=== PATIENT | female | born 1975 | race American Indian/Alaskan Native ===

== ENCOUNTER 2023-03-19 18:08 | Emergency (ER) | payer MEDICAID, SELFPAY ==
[2023-03-19 18:12] VITALS: BP 141/85; PULSE 69; RESP 16; TEMP 36.6; O2SAT 98; BMI 26.9
[2023-03-19 18:48] LABS: Alanine Aminotransferase 22 IU/L (<35); Albumin 4.1 g/dL (3.5-5.0); Albumin Globulin Ratio 1.1 (1.0-2.8); Alkaline Phosphatase 68 U/L (38-126); Aspartate Aminotransferase 29 IU/L (14-36); BUN Creatinine Ratio 18.8 (6-22); Bilirubin Total 0.5 mg/dL (0.2-1.3); Blood Urea Nitrogen 12 mg/dL (7-17); Calcium 8.9 mg/dL (8.4-10.2); Carbon Dioxide 27 mmol/L (22-32); Chloride 105 mmol/L (98-107); Estimated Glomerular Filt Rate > 60 mL/min (>60); Globulin 3.6 g/dL (1.7-4.1); Glucose 118 mg/dL (70-100); Lipase 96 U/L (23-300); Sodium 139 mmol/L (137-145); Total Protein 7.7 g/dL (6.3-8.2)
[2023-03-19 18:50] LABS: HEMOLYSIS 68 (0-50); Potassium 4.2 mmol/L (3.4-5.1)
[2023-03-19 18:57] LABS: Add Manual Diff / Slide Review NO; Basophils Absolute Auto 0 /uL (0-100); Basophils Percent Auto 0.4 % (0-2); Eosinophils Absolute Auto 100 /uL (0-450); Eosinophils Percent Auto 1.1 % (2-4); Hematocrit 40.6 % (36-46); Lymphocytes Absolute Auto 1900 /uL (1100-4500); Lymphocytes Percent Auto 25.4 % (25-40); Mean Corpuscular HGB Conc 34.4 % (30-36); Mean Corpuscular Volume 90.1 fL (80-100); Monocytes Absolute Auto 400 /uL (0-900); Monocytes Percent Auto 4.7 % (3-14); Neutrophils Absolute Auto 5200 /uL (1500-7000); Neutrophils Percent Auto 68.4 % (50-75); Platelet Count 341 X10^3/uL (150-400); Red Cell Distribution Width 12.9 % (11.6-14.8); White Blood Cell Count 7.6 X10^3/uL (4.5-11.0)
--- NOTE | 2023-03-19 20:03 | DI.US.S_ITS ---
PROCEDURE: US ABDOMEN LIMITED INDICATIONS: POST PRANDIAL RUQ PAIN X 2 WEEKS TECHNIQUE: Real-time focused scanning was performed of the abdomen, with image documentation. COMPARISON: None. FINDINGS: Visualized pancreas unremarkable sonographically. No biliary ductal dilation extrahepatic bile duct measures 6 mm. No gallstones , gallbladder wall thickening or sonographic Vick sign. Liver length of 14.4 cm. The liver is echogenic. IMPRESSION: 1. No cholelithiasis or evidence of acute cholecystitis. 2. The liver is echogenic, a nonspecific finding commonly seen in the setting of steatosis. Dictated by: Tad Longoria M.D. on 03/19/2023 at 21:04 Approved by: Tad Longoria M.D. on 03/19/2023 at 21:06
[2023-03-19 22:26] VITALS: PULSE 71; O2SAT 97
[2023-03-19 22:30] VITALS: BP 137/85; PULSE 73; O2SAT 97
[2023-03-19] MEDS: ONDANSETRON 4 MG/2 ML INJ IV (22:35)
[2023-03-19 23:00] VITALS: BP 127/75; PULSE 68; O2SAT 97
[2023-03-19 23:30] VITALS: BP 121/73; PULSE 67; O2SAT 96
[2023-03-20] VITALS: BP 130/79; PULSE 68; O2SAT 95
--- NOTE | 2023-03-20 00:08 | ED_ITS ---
HPI - General Adult General Chief complaint: Abdominal Pain Stated complaint: stomach pain/N Time Seen by Provider: 03/19/23 23:10 Source: patient Mode of arrival: Ambulatory History of Present Illness HPI narrative: Otherwise healthy 47-year-old woman presents complaining of abdominal pain that usually periumbilical but occasionally localizing up to the right lower quadrant associated with nausea after eating. Symptoms have been noted over the past 2 weeks. Not associated with vomiting or fevers. She notes that she typically has bowel movements only every other day. Denies significant alcohol use does not describe burning reflux type pain. Related Data Home Medications Medication Instructions Recorded Confirmed No Known Home Medications 03/19/23 03/19/23 Allergies Allergy/AdvReac Type Severity Reaction Status Date / Time No Known Drug Allergies Allergy Verified 03/19/23 18:16 Review of Systems Review of Systems Narrative: Pertinent positive and negative findings as per HPI Patient History Social History Smoking Status: Never smoker Smoking Status: Never smoker alcohol intake frequency: a few times a month Substance Use Type: marijuana Exam Initial Vital Signs Initial Vital Signs: Vital Signs Temperature 97.8 F 03/19/23 18:12 Pulse Rate 69 03/19/23 18:12 Respiratory Rate 16 03/19/23 18:12 Blood Pressure 141/85 H 03/19/23 18:12 Pulse Oximetry 98 03/19/23 18:12 Oxygen Delivery Method Room Air 03/19/23 18:12 General: Healthy appearing, in no acute distress. Able to give a complete and coherent history. Well-nourished well-developed HEENT: Moist mucous membranes, normal sclera with reactive pupils, Respiratory: Lungs are clear to auscultation, no wheezing no rales no rhonchi. Full and symmetrical air movement Cardiac: Regular rate and rhythm no murmurs no bruits Abdomen: Soft, mild diffuse tenderness without rebound or guarding, no flank pain Skin: Warm and dry, no rashes Neurologic: Grossly neurologically intact with no obvious asymmetries or abnormalities Extremities: No trauma, well perfused Psych: Cooperative, appropriate insight and affect Course Orders Ordered: ED Orders 03/19/23 18:00 Complete Blood Count AUTO DIFF Stat Comprehensive Metabolic Panel Stat Lipase Stat 03/19/23 18:31 Urine Microscopic Stat 03/19/23 18:42 Urine Culture Stat 03/19/23 20:03 US abdomen limited Stat Ondansetron HCl (Ondansetron 4 Mg Odt) 4 mg PO NOW PRN PRN Reason: Nausea And Vomiting Ondansetron HCl (Ondansetron 4 Mg/2 Ml Inj) 4 mg IV NOW PRN PRN Reason: Nausea And Vomiting Last Admin: 03/19/23 22:35 Dose: 4 mg Documented By: SB Vital Signs Vital signs: Vital Signs - 8 hr 03/19/23 18:12 03/19/23 22:26 03/19/23 22:30 Temperature 97.8 F Pulse Rate 69 71 Respiratory Rate 16 Blood Pressure 141/85 H 137/85 Pulse Oximetry 98 97 Oxygen Delivery Method Room Air 03/19/23 22:30 Temperature Pulse Rate 73 Respiratory Rate Blood Pressure Pulse Oximetry 97 Oxygen Delivery Method Room Air Medical Decision Making Lab Data 03/19/23 18:00 03/19/23 18:00 Labs: Lab Results 03/19/23 Range/Units 18:00 WBC 7.6 (4.5-11.0) X10^3/uL RBC 4.50 (4.0-5.2) X10^6/uL Hgb 14.0 (12.0-16.0) g/dL Hct 40.6 (36-46) % MCV 90.1 (80-100) fL MCH 31.0 (26-34) PG MCHC 34.4 (30-36) % RDW 12.9 (11.6-14.8) % Plt Count 341 (150-400) X10^3/uL Neut % (Auto) 68.4 (50-75) % Lymph % (Auto) 25.4 (25-40) % [place] % (Auto) 4.7 (3-14) % Eos % (Auto) 1.1 L (2-4) % Baso % (Auto) 0.4 (0-2) % Neut # (Auto) 5200 (4804-7884) /uL Lymph # (Auto) 1900 (4764-1274) /uL [place] # (Auto) 400 (0-900) /uL Eos # (Auto) 100 (0-450) /uL Baso # (Auto) 0 (0-100) /uL Sodium 139 (137-145) mmol/L Potassium 4.2 (3.4-5.1) mmol/L Chloride 105 (98-107) mmol/L Carbon Dioxide 27 (22-32) mmol/L BUN 12 (7-17) mg/dL Creatinine 0.64 (0.52-1.04) mg/dL Estimated GFR > 60 (>60) mL/min BUN/Creatinine Ratio 18.8 (6-22) Glucose 118 H (70-100) mg/dL Calcium 8.9 (8.4-10.2) mg/dL Total Bilirubin 0.5 (0.2-1.3) mg/dL AST 29 (14-36) IU/L ALT 22 (<35) IU/L Alkaline Phosphatase 68 (38-126) U/L Total Protein 7.7 (6.3-8.2) g/dL Albumin 4.1 (3.5-5.0) g/dL Globulin 3.6 (1.7-4.1) g/dL Albumin/Globulin Ratio 1.1 (1.0-2.8) Lipase 96 (23-300) U/L Point of Care Testing Test Results Negative Urine Dip Bedside Urine Glucose Negative Bedside Urine Bilirubin - Negative Bedside Urine Ketone - Negative Urine Specific [place] 1.03 Bedside Urine Occult Blood ++ Bedside Urine pH 6 Bedside Urine Protein - Negative Bedside Urine Urobilinogen - Negative Bedside Urine Nitrite - Negative Bedside Urine Leukocytes - Negative Esterase Point of care testing: Point of Care Testing Test Results Negative Urine Dip Bedside Urine Glucose Negative Bedside Urine Bilirubin - Negative Bedside Urine Ketone - Negative Urine Specific [place] 1.03 Bedside Urine Occult Blood ++ Bedside Urine pH 6 Bedside Urine Protein - Negative Bedside Urine Urobilinogen - Negative Bedside Urine Nitrite - Negative Bedside Urine Leukocytes - Negative Esterase [facility] Narrative Medical decision making narrative: CC: Intermittent abdominal pain, worse after eating x2 weeks Data collected from: patient, Differential considered: Gallbladder disease, gastritis versus ulcer, pancreatitis, constipation, nephrolithiasis Exam documented above, pertinent findings include: Mild diffuse abdominal tenderness without any other localizing findings Lab Test results independently reviewed as above. Pertinent findings: CBC is unremarkable Chemistries show no significant abnormalities. Normal liver function studies Lipase is unremarkable Imaging studies independently reviewed: Ultrasound of the abdomen shows not gallstones, dilated ducts or gallbladder wall thickening Discussion: 47-year-old woman with intermittent abdominal pain for the last 2 weeks worse after eating. Ultrasound is unremarkable labs are reassuring. Her description does not sound like reflux. She may in fact have constipation as her exam suggests mild tenderness along the course of her colon. We talked about using magnesium citrate see if cleaning out her whole colon would help alleviate some of her symptoms. We also discussed the possibility of acalculous gallbladder dysfunction. If she still continues to have symptoms after using magnesium citrate suggested that she follow-up with her primary care doctor and she may benefit from a HIDA study for further evaluation. At this point there is no evidence of acute surgical abdomen, need for further evaluation or indication for hospitalization. Questions are answered and she is safe for discharge Discharge Plan Departure Patient Disposition: Home Clinical Impression: Abdominal pain Instructions: DI for Abdominal Pain-Adult Activity Restrictions/Additional Instructions: Thank you for coming in today Your workup was very reassuring and I did not find an obvious answer to your intermittent episodes of abdominal pain. Specifically, there is no evidence of serum fear infection, you do not have gallstones or acute gallbladder disease. There is no evidence of appendicitis or kidney stones It may be that you are experiencing issues with constipation and I would recommend using the magnesium citrate that I have sent you home with to clean out your entire colon. If your symptoms persist after this than the next thing to consider might be gallbladder function. You can discuss this with your primary care doctor who may recommend HIDA study to look at how well your gallbladder is squeezing. It is possible to have gallbladder disease without gallstones. If you find that you are getting worse or develop any new symptoms, please feel free to return to the emergency department for further evaluation. Prescriptions: No Action No Known Home Medications Referrals: Miscellamy,MD Linda [Primary Care Provider] - Stand Alone Forms: Patient Portal/API
[2023-03-20 00:36] VITALS: RESP 18
[2023-03-20] MEDS: MAGNESIUM CITRATE 300 ML SOLUTION PO (00:39)
[2023-03-20 00:43] VITALS: BP 126/75; PULSE 65; O2SAT 96
== END 2023-03-20 00:46 | disposition home or self-care (01) ==
PROVIDERS: Emergency Medicine; Emergency Provider Emergency Medicine
DX: R10.31 Right lower quadrant pain (principal)
CPT/HCPCS: 36415; 76705; 80053; 81003; 81025; 83690; 85025; 96374; 99284; J2405

== ENCOUNTER 2023-11-29 08:30 | Outpatient (RCR) | payer MEDICAID, SELFPAY | END 2023-11-29 10:30 | LOC: CAR 08:30 | PROVIDERS: Referring Provider Internal Medicine Cardiovascular Disease; Visit Provider Internal Medicine Cardiovascular Disease | DX: I25.118 Atherosclerotic heart disease of native coronary artery with other forms of angina pectoris (principal) | CPT/HCPCS: 93798 ==

== ENCOUNTER 2024-03-13 17:16 | Emergency (ER) | payer MEDICAID, OTHER, SELFPAY ==
[2024-03-13] VITALS (8 sets, daily range): BP systolic 102–131; BP diastolic 55–82; PULSE 78–89; RESP 13–21; TEMP 36.9; O2SAT 95–99; BMI 27.2
--- NOTE | 2024-03-13 17:29 | DI.RAD.S_ITS ---
PROCEDURE: XR CHEST 1V INDICATIONS: chest pain TECHNIQUE: One view of the chest was acquired. COMPARISON: None. FINDINGS: Surgical changes and devices: None. Lungs and pleura: Lungs are clear. No pleural effusions or pneumothorax. Mediastinum: Mediastinal contours appear normal. Heart size is normal. Bones and chest wall: No suspicious bony lesions. Overlying soft tissues appear unremarkable. IMPRESSION: No acute cardiopulmonary abnormality is seen. Dictated by: Ko Fernandez M.D. on 03/13/2024 at 18:03 Approved by: Ko Fernandez M.D. on 03/13/2024 at 18:03
--- NOTE | 2024-03-13 17:31 | EKG_ITS ---
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
[2024-03-13] MEDS: ASPIRIN 81 MG CHEW TAB 324 MG PO (17:39)
--- NOTE | 2024-03-13 17:49 | PC.NURSE ---
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 Pt reports shortness of breath as well. Respirations regular and unlabored. Vital signs WNL. Pt informed that if her pain/pressure/symptoms changes to let us know. Pt states she took her prescribed 81mg [employer]. Pt states she is not on any blood thinners.
[2024-03-13 17:54] LABS: Add Manual Diff / Slide Review NO; Basophils Absolute Auto 100 /uL (0-100); Basophils Percent Auto 0.7 % (0-2); Eosinophils Absolute Auto 100 /uL (0-450); Eosinophils Percent Auto 1.8 % (2-4); Hematocrit 41.2 % (36-46); Hemoglobin 14.2 g/dL (12.0-16.0); Lymphocytes Absolute Auto 2700 /uL (1100-4500); Lymphocytes Percent Auto 32.4 % (25-40); Mean Corpuscular HGB Conc 34.6 % (30-36); Mean Corpuscular Hemoglobin 31.1 PG (26-34); Mean Corpuscular Volume 89.8 fL (80-100); Monocytes Absolute Auto 500 /uL (0-900); Monocytes Percent Auto 6.2 % (3-14); Neutrophils Absolute Auto 4900 /uL (1500-7000); Neutrophils Percent Auto 58.9 % (50-75); Platelet Count 394 X10^3/uL (150-400); Red Blood Cell Count 4.58 X10^6/uL (4.0-5.2); Red Cell Distribution Width 13.7 % (11.6-14.8); White Blood Cell Count 8.3 X10^3/uL (4.5-11.0)
[2024-03-13 18:01] LABS: Prothrombin Time 11.5 SECONDS (9.4-12.5)
[2024-03-13 18:04] LABS: PTT Partial Thromboplastin Tim 37 SECONDS (25.1-36.5)
[2024-03-13 18:05] LABS: Alanine Aminotransferase 22 IU/L (<35); Albumin 4.1 g/dL (3.5-5.0); Albumin Globulin Ratio 1.1 (1.0-2.8); Alkaline Phosphatase 119 U/L (38-126); Aspartate Aminotransferase 26 IU/L (14-36); BUN Creatinine Ratio 22.6 (6-22); Bilirubin Total 0.4 mg/dL (0.2-1.3); Blood Urea Nitrogen 14 mg/dL (7-17); Calcium 8.7 mg/dL (8.4-10.2); Carbon Dioxide 26 mmol/L (22-32); Chloride 105 mmol/L (98-107); Creatine Kinase 60 U/L (30-135); Estimated Glomerular Filt Rate > 60 mL/min (>60); Globulin 3.6 g/dL (1.7-4.1); Glucose 135 mg/dL (70-100); HEMOLYSIS < 15 (0-50); Lipase 80 U/L (23-300); Potassium 3.5 mmol/L (3.4-5.1); Sodium 139 mmol/L (137-145); Total Protein 7.7 g/dL (6.3-8.2)
[2024-03-13 18:17] LABS: NT-proBNP (BNP-Adult 18+) < 20 pg/mL (<125); Troponin I < 0.012 ng/mL (0.01-0.034)
--- NOTE | 2024-03-13 18:19 | ED_ITS ---
HPI - Chest Pain General Chief Complaint: Chest Pain Stated Complaint: chest px, stent placed 6 mos ago Time Seen by Provider: 03/13/24 17:27 Source: patient Mode of arrival: Ambulatory Limitations: no limitations History of Present Illness HPI narrative: 48-year-old female with history of coronary artery disease, hypertension presents by private vehicle from home for 2 weeks of intermittent chest pressure and shortness of breath. Patient states that around 1:00 p.m. today the sensation was the most intense it has been and so she decided to present for evaluation. Over the last 2 weeks patient can not identify what makes the pain come or go. Usually lasts for an hour or 2 before resolving spontaneously. Patient currently pain free. Reports compliance with her home prescribed medications of aspirin and amlodipine. Related Data Home Medications Medication Instructions Recorded Confirmed Adult Low Dose Aspirin See Rx Instructions .Route .COMPLEX 03/13/24 03/13/24 amlodipine-atorvastatin See Rx Instructions .Route .COMPLEX 03/13/24 03/13/24 metoprolol succinate 25 mg 25 mg PO DAILY 03/13/24 03/13/24 tablet,extended release 24 hr prasugrel 10 mg tablet 10 mg PO DAILY 03/13/24 03/13/24 pravastatin 40 mg tablet 40 mg PO DAILY 03/13/24 03/13/24 Allergies Allergy/AdvReac Type Severity Reaction Status Date / Time morphine Allergy Verified 03/13/24 17:31 Patient History Social History Smoking Status: Never smoker Smoking Status: Never smoker alcohol intake frequency: holidays/special occasions only Substance Use Type: marijuana Exam Initial Vital Signs Initial Vital Signs: Vital Signs Temperature 98.5 F 03/13/24 17:20 Pulse Rate 89 03/13/24 17:20 Respiratory Rate 14 03/13/24 17:20 Blood Pressure 127/74 03/13/24 17:20 Pulse Oximetry 97 03/13/24 17:20 Oxygen Delivery Method Room Air 03/13/24 17:20 Const: Awake, alert, no acute distress, nontoxic appearing Cardiac: regular rate, regular rhythm RESP: unlabored, clear bilaterally, no wheezing GI: Soft, nontender, nondistended, no rebound, no guarding Skin: Warm, Dry, intact, no rashes Neuro: AO x3, CN II-XII grossly intact, moves all extremities Course Orders Ordered: ED Orders 03/13/24 15:40 D Dimer Stat 03/13/24 17:29 XR chest 1V Stat EKG-12 Lead Stat 03/13/24 17:40 Complete Blood Count AUTO DIFF Stat Comprehensive Metabolic Panel Stat Lipase Stat Magnesium Stat NT-proBNP (BNP-Adult 18+) Stat PTT Partial Thromboplastin Bello Stat Prothrombin Time INR Stat Troponin & CK Cardiac Panel Stat 03/13/24 19:15 Trop I [Troponin I] Stat Discontinued Medications Aspirin (Aspirin 81 Mg Chew Tab) 324 mg PO NOW ONE Stop: 03/13/24 17:30 Last Admin: 03/13/24 17:39 Dose: 243 mg Documented By: ROMAN Vital Signs Vital signs: Vital Signs - 8 hr 03/13/24 17:20 03/13/24 17:27 03/13/24 17:27 Temperature 98.5 F Pulse Rate 89 85 Respiratory Rate 14 Blood Pressure 127/74 127/74 Pulse Oximetry 97 98 Oxygen Delivery Method Room Air 03/13/24 17:30 03/13/24 17:30 03/13/24 18:00 Temperature Pulse Rate 85 Respiratory Rate 15 Blood Pressure 131/82 118/71 Pulse Oximetry 99 Oxygen Delivery Method Room Air 03/13/24 18:00 03/13/24 18:30 03/13/24 18:30 Temperature Pulse Rate 78 80 Respiratory Rate 13 20 Blood Pressure 116/68 Pulse Oximetry 98 97 Oxygen Delivery Method 03/13/24 19:00 03/13/24 19:00 03/13/24 19:30 Temperature Pulse Rate 81 Respiratory Rate 21 Blood Pressure 102/55 L 110/64 Pulse Oximetry 97 Oxygen Delivery Method 03/13/24 19:30 03/13/24 20:00 03/13/24 20:00 Temperature Pulse Rate 86 83 Respiratory Rate 19 19 Blood Pressure 107/72 Pulse Oximetry 96 95 Oxygen Delivery Method MDM - Chest Pain Differential Diagnosis Differential diagnosis: Likely unstable angina pectoris, atypical chest pain and costochondritis Lab Data 03/13/24 17:40 03/13/24 17:40 Labs: Lab Results 03/13/24 03/13/24 03/13/24 Range/Units 15:40 17:40 19:15 WBC 8.3 (4.5-11.0) X10^3/uL RBC 4.58 (4.0-5.2) X10^6/uL Hgb 14.2 (12.0-16.0) g/dL Hct 41.2 (36-46) % MCV 89.8 (80-100) fL MCH 31.1 (26-34) PG MCHC 34.6 (30-36) % RDW 13.7 (11.6-14.8) % Plt Count 394 (150-400) X10^3/uL Neut % (Auto) 58.9 (50-75) % Lymph % (Auto) 32.4 (25-40) % [place] % (Auto) 6.2 (3-14) % Eos % (Auto) 1.8 L (2-4) % Baso % (Auto) 0.7 (0-2) % Neut # (Auto) 4900 (7116-2624) /uL Lymph # (Auto) 2700 (8198-8161) /uL [place] # (Auto) 500 (0-900) /uL Eos # (Auto) 100 (0-450) /uL Baso # (Auto) 100 (0-100) /uL PT 11.5 (9.4-12.5) SECONDS INR 1.0 (0.9-1.3) APTT 37 H (25.1-36.5) SECONDS D-Dimer 253 (<500) ng/ml Sodium 139 (137-145) mmol/L Potassium 3.5 (3.4-5.1) mmol/L Chloride 105 (98-107) mmol/L Carbon Dioxide 26 (22-32) mmol/L BUN 14 (7-17) mg/dL Creatinine 0.62 (0.52-1.04) mg/dL Estimated GFR > 60 (>60) mL/min BUN/Creatinine Ratio 22.6 H (6-22) Glucose 135 H (70-100) mg/dL Calcium 8.7 (8.4-10.2) mg/dL Magnesium 2.0 (1.6-2.3) mg/dL Total Bilirubin 0.4 (0.2-1.3) mg/dL AST 26 (14-36) IU/L ALT 22 (<35) IU/L Alkaline Phosphatase 119 (38-126) U/L Total Creatine Kinase 60 (30-135) U/L Troponin I < 0.012 < 0.012 (0.01-0.034) ng/mL NT-Pro-B Natriuret Pep < 20 (<125) pg/mL Total Protein 7.7 (6.3-8.2) g/dL Albumin 4.1 (3.5-5.0) g/dL Globulin 3.6 (1.7-4.1) g/dL Albumin/Globulin Ratio 1.1 (1.0-2.8) Lipase 80 (23-300) U/L Imaging Data Chest x-ray: Radiologist's Impression: PROCEDURE: XR CHEST 1V INDICATIONS: chest pain TECHNIQUE: One view of the chest was acquired. COMPARISON: None. FINDINGS: Surgical changes and devices: None. Lungs and pleura: Lungs are clear. No pleural effusions or pneumothorax. Mediastinum: Mediastinal contours appear normal. Heart size is normal. Bones and chest wall: No suspicious bony lesions. Overlying soft tissues appear unremarkable. IMPRESSION: No acute cardiopulmonary abnormality is seen. Dictated by: Ko Fernandez M.D. on 03/13/2024 at 18:03 Approved by: Ko Fernandez M.D. on 03/13/2024 at 18:03 ECG Data Interpretation: Normal sinus rhythm at 74 beats per minute. Normal [place]. No ST T wave changes, no STEMI MDM Narrative Medical decision making narrative: 2 weeks of intermittent chest pains with shortness of breath. Reports pressure and shortness of breath earlier today, none currently. EKG sinus rhythm. Heart score 3 pending troponin based on risk factors and age. History is less suspicious given that symptoms has been intermittent for several weeks. Troponin negative x2. D-dimer within normal limits. Patient was remained hemodynamically stable throughout stay in the emergency department. 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 Overall low suspicion for ACS due to chronicity of symptoms with normal workup here in the emergency department. Discharge Plan Departure Patient Disposition: Home Clinical Impression: Chest pain Instructions: DI for Chest Pain Activity Restrictions/Additional Instructions: Your blood work, EKG, and chest x-ray imaging today were all reassuring. I do not know the cause of your chest pain but it does not appear to be a heart attack, blood clot, or other immediately life-threatening condition. Follow up with your primary care doctor and your heart doctor, especially if you continue to experience symptoms. Prescriptions: No Action metoprolol succinate 25 mg tablet extended release 24 hr 25 mg PO DAILY prasugrel 10 mg tablet 10 mg PO DAILY pravastatin 40 mg tablet 40 mg PO DAILY amlodipine-atorvastatin See Rx Instructions .ROUTE .COMPLEX Rx Instructions: amlodipine-atorvastatin 5-80mg Adult Low Dose Aspirin See Rx Instructions .ROUTE .COMPLEX Rx Instructions: 81mg Referrals: Miscellaneous,Doctor, [Primary Care Provider] - Stand Alone Forms: Patient Portal/API
[2024-03-13 18:34] LABS: D Dimer 253 ng/ml (<500)
[2024-03-13 20:09] LABS: Troponin I < 0.012 ng/mL (0.01-0.034)
== END 2024-03-13 20:34 | disposition home or self-care (01) ==
PROVIDERS: Emergency Medicine; Emergency Provider Emergency Medicine
DX: R07.9 Chest pain, unspecified (principal); R06.02 Shortness of breath
CPT/HCPCS: 71045; 80053; 82550; 83690; 83735; 83880; 84484; 85025; 85379; 85610; 85730; 93005; 93010; 99283; 99284